=== PATIENT | male | born 1990 | race Caucasian/White ===

== ENCOUNTER 2023-03-06 10:39 | Day surgery (SDC) | payer BC ==
[~2023-03-06 10:39] MED LIST: Lactated Ringers 1,000 ML IV SCH; Lidocaine 1%/Sod Bicarbonate in NS 8.4% 1 ML Syringe IDERM PRN; Sodium Chloride 0.9% 10 ML Syringe FLUSH PRN; Sodium Chloride 0.9% 10 ML Syringe FLUSH SCH
[2023-03-06] MEDS ORDERED: Lidocaine 1% with EPINEPHrine 1:100,000 20 ML MDV ONE ×2 (11:19→13:00)
[2023-03-06] MEDS ORDERED: Bacitracin Oint 15 GM Tube ONE (11:19)
[2023-03-06] MEDS ORDERED: Propofol 200 MG/20 ML SDV ONE (12:09)
[2023-03-06] MEDS ORDERED: Lidocaine 1% 2 ML ONE (12:09)
[2023-03-06] MEDS ORDERED: fentaNYL 100 MCG/2 ML SDV ONE (12:10)
[2023-03-06] MEDS ORDERED: Midazolam 1 MG/ML 2 ML SDV ONE (12:10)
[2023-03-06] MEDS ORDERED: Bupivacaine 0.5%/EPINEPHrine 1:200,000 50 ML MDV ONE (12:59)
[2023-03-06 14:51] VITALS: BP 148/78
[2023-03-06 15:15] VITALS: PULSE 78
== END 2023-03-06 15:17 | disposition home or self-care (01) ==
LOC: JD.SDS 10:39
PROVIDERS: ATTEND Surgery
DX: L90.5 Scar conditions and fibrosis of skin (principal); F32.A Depression, unspecified; F41.0 Panic disorder [episodic paroxysmal anxiety]; Z79.899 Other long term (current) drug therapy
CPT/HCPCS: 11403; J2250; J2704; J3010; J3490; J7120; 00300; A9270-GY

== ENCOUNTER 2023-03-10 16:14 | Emergency (ER) | payer BC ==
[2023-03-10 16:25] VITALS: BP 148/91; PULSE 73
== END 2023-03-10 17:11 | disposition home or self-care (01) ==
LOC: JD.ED 16:14
DX: T81.30XA Disruption of wound, unspecified, initial encounter (principal); E66.9 Obesity, unspecified; Z68.42 Body mass index [BMI] 45.0-49.9, adult; Z79.899 Other long term (current) drug therapy
CPT/HCPCS: 99283